=== PATIENT | male | born 1965 | race Caucasian/White ===

== ENCOUNTER 2016-11-30 09:26 | Emergency (ER) | payer OTHER ==
--- NOTE | 2016-11-30 11:23 | RAD ---
Exam: Three-view right shoulder COMPARISON: None INDICATION: Fall getting out of truck today, right shoulder pain. FINDINGS: AP, Grashey and transscapular y views of the right shoulder were obtained. Overall normal bone mineralization. Alignment is normal. No fracture is identified. Mild degenerative changes are present within the acromioclavicular joint. Glenohumeral joint within normal limits. Visualized right hemithorax within normal limits. IMPRESSION: No acute osseous abnormality in the right shoulder. Mild degenerative changes right acromioclavicular joint.
== END 2016-11-30 11:38 | disposition home or self-care (01) ==
LOC: ED 09:26
DX: S46.001A Unspecified injury of muscle(s) and tendon(s) of the rotator cuff of right shoulder, initial encounter (principal); F17.220 Nicotine dependence, chewing tobacco, uncomplicated; X50.0XXA Overexertion from strenuous movement or load, initial encounter; Y92.9 Unspecified place or not applicable